=== PATIENT | male | born 1980 | race Caucasian/White ===

== ENCOUNTER 2016-08-18 14:06 | Emergency (ER) | payer SELFPAY ==
--- NOTE | 2016-08-18 15:21 | ER Document Report ---
HPI - HPI Patient complains to provider of: left foot pain Onset: Other - 03/10 week Quality of pain: Achy Severity: Mild Pain Level: 2 Context: Patient presents with left foot pain for the past week and a half. Denies trauma. Reports he's had this pain before but it went away. He reports family history of diabetes and gout. He denies erythema or warmth. Reports pain started on the lateral dorsal area of his foot but gradually rotated around to medial area dorsally. Reports it hurts his foot when he wears boots. Denies other symptoms such as fever vomiting diarrhea. Associated Symptoms: None Exacerbated by: Walking Relieved by: Denies Similar symptoms previously: Yes Recently seen / treated by doctor: No - DERM Skin Color: Normal Past Medical History - General Information source: Patient - Social History Smoking Status: Unknown if Ever Smoked Cigarette use (# per day): No Frequency of alcohol use: None Drug Abuse: None Occupation: unemployed Family History: DM, Other - gout Patient has suicidal ideation: No Patient has homicidal ideation: No - Medical History Medical History: Negative Renal/ Medical History: Denies: Hx Peritoneal Dialysis Surgical Hx: Negative Vertical Provider Document - CONSTITUTIONAL Agree With Documented VS: Yes Exam Limitations: No Limitations General Appearance: WD/WN, Mild Distress - limping when walking - INFECTION CONTROL TRAVEL OUTSIDE OF THE [place] IN LAST 30 DAYS: No - HEENT HEENT: Atraumatic, Normocephalic - NECK Neck: Normal Inspection, Supple - RESPIRATORY Respiratory: Breath Sounds Normal, No Respiratory Distress O2 Sat by Pulse Oximetry: 97 - MUSCULOSKELETAL/EXTREMETIES Musculoskeletal/Extremeties: MAEW, FROM, Tender - left foot dorsal ttp, no erythema, no swelling, no warmth, good pedal pulse, brisk cap refill, no obvious deformity, denies plantar pain - NEURO Level of Consciousness: Awake, Alert, Appropriate Motor/Sensory: No Motor Deficit - DERM Integumentary: Warm, Dry Adult Front & Back Diagram: 1 - c/o ttp Course - Re-evaluation Re-evalutation: 08/18/16 Patient was updated on x-ray instructed on medications. Patient was instructed on the importance of follow-up with curriculum advisory teacher. He verbalized understanding to all instructions. Patient ambulates with a limp - Vital Signs Vital signs: Temp Pulse Resp BP Pulse Ox 98.6 F 102 H 17 156/93 H 97 08/18/16 14:10 08/18/16 14:10 08/18/16 14:10 08/18/16 14:10 08/18/16 14:10 - Diagnostic Test Radiology reviewed: Image reviewed, Reports reviewed - Diagnostic report text EXAM DESCRIPTION: FOOT LEFT COMPLETE COMPLETED DATE/TIME: 2016 3:51 pm REASON FOR STUDY: 34-foot pain COMPARISON: None. NUMBER OF VIEWS: Three views. TECHNIQUE: AP, lateral and oblique radiographic images acquired of the left foot. LIMITATIONS: None. FINDINGS: MINERALIZATION: Normal. BONES: No acute fracture or dislocation. No worrisome bone lesions. JOINTS: Question fibrous coalition or arthropathy at the articulation between the calcaneus and navicular bone, with subcortical cyst formation and bony sclerosis. SOFT TISSUES: No soft tissue swelling. No foreign body. OTHER: No other significant finding. TECHNICAL DOCUMENTATION: JOB ID: [id number] [employer]- All Rights Reserved RAD/ FOOT LEFT COMPLETE IMPRESSION: Subcortical cysts and bony sclerosis at the calcaneonavicular joint, which could be related to arthropathy or fibrous coalition Discharge - Discharge Clinical Impression: Left foot pain, Elevated blood pressure reading Condition: Stable Disposition: HOME, SELF-CARE Instructions: Ibuprofen (General) ([facility]), Oral Narcotic Medication ([facility]) Additional Instructions: *You have been evaluated for left foot pain, arthropathy *Follow up with a curriculum advisory teacher- see list *Rest/Ice/Elevate your foot *Take medication as prescribed- take ibuprofen as prescribed, take norco for acute pain *Return to ED for worsening condition, changes, needs Monitor your blood pressure. Your blood pressure was elevated today. This may be because you were anxious, in pain or because you need medication. It is important to follow up with your primary care provider for full evaluation. Prescriptions: Hydrocodone/Acetaminophen [Wheeler 5-325 Tablet] 1 each PO QID #15 tablet Ibuprofen [Motrin 800 mg Tablet] 800 mg PO TID #30 tablet Forms: Elevated Blood Pressure Referrals: ORLY,HEATHER, DPM [ACTIVE STAFF] - Follow up as needed RADHA GARCIA, BRETTM [ACTIVE STAFF] - Follow up as needed DANNIE REDDING DPM [ACTIVE STAFF] - Follow up as needed
[2016-08-18 16:54] VITALS: BP 148/90
== END 2016-08-18 16:52 | disposition home or self-care (01) ==
LOC: ER 14:06
DX: M79.672 Pain in left foot (principal); R03.0 Elevated blood-pressure reading, without diagnosis of hypertension
CPT/HCPCS: 99283

== ENCOUNTER 2019-01-17 14:58 | Emergency (ER) | payer OTHER ==
[2019-01-17] MEDS ORDERED: NORMAL SALINE 1000 ML 1,000 ML IV ONE ×2 (15:12→17:23)
--- NOTE | 2019-01-17 15:18 | ER Document Report ---
ED General - General Chief Complaint: Pain All Over Stated Complaint: HEAT CRAMPING Time Seen by Provider: 01/17/19 15:09 Mode of Arrival: Ambulatory Information source: Patient Notes: 38-year-old male presents emergency department with complaints of heat cramps. 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 He reports he has been sweating and is starting to cramp up in his hands and his arms. Denies vomiting fever diarrhea, denies dizziness. Reports he had a good breakfast this morning. Also reports he is drank a huge amount of water but he still having the cramps. Denies past medical history of heat exhaustion heatstroke. Denies chest pain shortness of breath. TRAVEL OUTSIDE OF THE [place] 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 Lives with: Family Family History: DM, Other - gout Patient has suicidal ideation: No Patient has homicidal ideation: No Renal/ Medical History: Denies: Hx Peritoneal Dialysis Musculoskeletal Medical History: Reports Hx Arthritis Past Surgical History: Reports: Hx Orthopedic Surgery Review of Systems - Review of Systems Notes: Review HPI for review of systems., All other systems negative Physical Exam - Vital signs Vitals: Temp Pulse Resp BP Pulse Ox 98.8 F 107 H 18 120/92 H 96 01/17/19 15:03 01/17/19 15:03 01/17/19 15:03 01/17/19 15:03 01/17/19 15:03 - Notes Notes: PHYSICAL EXAMINATION: GENERAL: Well-appearing and in no acute distress HEAD: Atraumatic, normocephalic. EYES: Pupils equal round extraocular movements intact, sclera anicteric, conjunctiva are normal. ENT: nares patent, . Moist mucous membranes. NECK: Normal range of motion, supple without lymphadenopathy LUNGS: CTAB and equal. No wheezes rales or rhonchi. HEART: Regular rate and rhythm without murmurs ABDOMEN: Soft, no tenderness. No guarding, no rebound EXTREMITIES: Normal range of motion, NEUROLOGICAL: Cranial nerves grossly intact. Normal sensory/motor exams. PSYCH: Normal mood, normal affect. SKIN: Warm, sweating, normal turgor, no rashes or lesions noted Course - Re-evaluation Re-evalutation: 01/17/19 15:15 38-year-old male presents to the emergency department with body cramps. Reports he has been working outside his sweating. He reports he has been drinking lots of fluids no vomiting no diarrhea and he also ate a large breakfast this morning. Reports cramps come and go. Patient is very sweaty. 01/17/19 18:49 Renal function elevated patient received 2 L of fluid is drinking p.o. fluids. He reports he feels much better. Discussed labs AND patient with Dr. Perez. Patient will be sent home repeat labs in the morning. Patient was instructed on the importance of fluids stay hydrated stay cool. He verbalized understanding to all instructions. - Vital Signs Vital signs: Temp Pulse Resp BP Pulse Ox 97.7 F 89 16 129/82 H 100 01/17/19 18:41 01/17/19 18:41 01/17/19 18:41 01/17/19 18:41 01/17/19 18:41 - Laboratory Result Diagrams: 01/17/19 15:30 01/17/19 15:30 Laboratory results interpreted by me: 01/17/19 01/17/19 01/17/19 15:30 15:30 16:35 WBC 14.2 H RBC 6.02 H RDW 14.3 H Absolute Neuts (auto) 11.0 H Chloride 97 L BUN 28 H Creatinine 1.46 H Est GFR (MDRD) Non-Af 53 L Calcium 10.9 H Total Protein 9.1 H Albumin 5.7 H Urine Protein 30 H Urine Urobilinogen 2.0 H Urine Ascorbic Acid 40 H Discharge - Discharge Clinical Impression: Heat cramps Qualifiers: Encounter type: initial encounter Qualified Code(s): T67.2XXA - Heat cramp, initial encounter Condition: Stable Disposition: HOME, SELF-CARE Instructions: Heat Exhaustion ([facility]), Intravenous (IV) Fluids ([facility]) Additional Instructions: *You have been evaluated for heat cramps *Push your fluids as discussed Gatorade water *Stay well hydrated, cool off often when working in the heat *Follow up with a primary care provider within one week for recheck *Your renal function was elevated. I believe this is because you are really dehydrated. We need to recheck those labs. Follow-up tomorrow for labs at [facility]. You may call me 2 hours after your test at [phone] for your results *Return to ED for worsening condition, changes, needs Forms: Elevated Blood Pressure, Return to Work, Follow-Up Laboratory Testing
[2019-01-17 16:03] LABS: ABSOLUTE LYMPHOCYTES (AUTO) 2.1 10^3/uL (0.5-4.7); BASOPHILS % (AUTO) 0.3 % (0-2); EOSINOPHILS % (AUTO) 0.2 % (0-6); HEMATOCRIT 48.6 % (37.9-51.0); HEMOGLOBIN 16.5 g/dL (13.5-17.0); LYMPHOCYTES % (AUTO) 14.8 % (13-45); MEAN CORPUSCULAR HEMOGLOBIN 27.4 pg (27.0-33.4); MEAN CORPUSCULAR HGB CONC 33.9 g/dL (32.0-36.0); MEAN CORPUSCULAR VOLUME 81 fl (80-97); MONOCYTES % (AUTO) 7.2 % (3-13); PLATELET COUNT 229 10^3/uL (150-450); RED BLOOD COUNT 6.02 10^6/uL (4.35-5.55); RED CELL DISTRIBUTION WIDTH 14.3 % (11.5-14.0); SEGMENTED NEUTROPHILS % (AUTO) 77.5 % (42-78); TOTAL CELLS COUNTED % (AUTO) 100 %; WHITE BLOOD COUNT 14.2 10^3/uL (4.0-10.5)
[2019-01-17 16:21] LABS: ALBUMIN 5.7 g/dL (3.5-5.0); ALKALINE PHOSPHATASE 84 U/L (38-126); ANION GAP 16 (5-19); ASPARTATE AMINO TRANSFERASE 51 U/L (17-59); BILIRUBIN,DIRECT 0.2 mg/dL (0.0-0.4); BILIRUBIN,TOTAL 0.6 mg/dL (0.2-1.3); BLOOD UREA NITROGEN 28 mg/dL (7-20); CALCIUM 10.9 mg/dL (8.4-10.2); CARBON DIOXIDE 26 mmol/L (22-30); CHLORIDE 97 mmol/L (98-107); GLUCOSE 92 mg/dL (75-110); TOTAL PROTEIN 9.1 g/dL (6.3-8.2)
[2019-01-17 17:05] LABS: APPEARANCE,URINE SLIGHTLY-CLOUDY; BILIRUBIN,URINE NEGATIVE (NEGATIVE); CALCIUM OXALATE CRYSTALS,URINE FEW /HPF; COLOR,URINE YELLOW; GLUCOSE, URINE NEGATIVE (NEGATIVE); KETONES,URINE NEGATIVE (NEGATIVE); LEUKOCYTE ESTERASE,URINE NEGATIVE (NEGATIVE); NITRITE,URINE NEGATIVE (NEGATIVE); PROTEIN,URINE 30 mg/dL (NEGATIVE); URINE SPECIFIC GRAVITY 1.028
[2019-01-17 18:43] VITALS: BP 129/82
== END 2019-01-17 18:52 | disposition home or self-care (01) ==
LOC: ER 14:58
DX: T67.2XXA Heat cramp, initial encounter (principal); X58.XXXA Exposure to other specified factors, initial encounter
CPT/HCPCS: 36415; 85025; 80053; 81001; J7030

== ENCOUNTER → 2019-01-18 | Outpatient (CLI) | payer OTHER ==
[2019-01-18 12:47] LABS: BLOOD UREA NITROGEN 19 mg/dL (7-20)
== END ==
LOC: OD 11:33
PROVIDERS: ATTEND Nurse Practitioner Family
DX: N17.9 Acute kidney failure, unspecified (principal); E86.0 Dehydration
CPT/HCPCS: 36415; 82565; 84520

== ENCOUNTER 2020-01-09 06:44 | Day surgery (SDC) | payer MEDICARE, OTHER ==
[~2020-01-09 06:44] MED LIST: KETOROLAC TROMETHAMINE 0.45% 4 DROP/0.4 ML DROPERETTE OS PRN
[2020-01-09] MEDS ORDERED: ONDANSETRON HCL INJ/PF 4 MG/2 ML SDV ONE (07:02)
[2020-01-09] MEDS ORDERED: FENTANYL CITRATE INJ/PF 100 MCG/2 ML AMPUL ONE (07:02)
[2020-01-09] MEDS ORDERED: MIDAZOLAM 2 MG/2 ML INJ ONE ×2 (07:02→08:24)
[2020-01-09] MEDS: CYCLOPENTOLATE 0.2%/PHENYLEPHRINE 1% OPH SOLN 2 ML OS PRN ×3 (07:08→07:28)
[2020-01-09] MEDS: TROPICAMIDE 1% OPH SOLN 15 ML OS PRN ×3 (07:08→07:28)
[2020-01-09] MEDS: BESIFLOXACIN HCL 0.6% OPH SUSP 5 ML BOTTLE OS PRN ×4 (07:08→08:18)
[2020-01-09] MEDS: TETRACAINE HCL 0.5% OPH SOLN 4 ML OS PRN ×4 (07:09→07:51)
[2020-01-09] MEDS: CHONDR SU A NA/HYALUR INTRAOC KIT (SURGICARE) ONE ×2 (08:01)
[2020-01-09] MEDS: LIDOCAINE 1%/PHENYLEPHRINE 1.5% 0.8 ML SYRINGE ONE ×2 (08:01)
[2020-01-09] MEDS: EPINEPHRINE INJ/PF 1 MG/1 ML AMPULE ONE ×2 (08:01)
[2020-01-09] MEDS: DORZOLAMIDE HCL 2%/TIMOLOL MALEAT 0.5% OPH SOLN 10 ML OS PRN ×2 (08:18)
[2020-01-09] MEDS: PREDNISOLONE ACETATE 1% OPH SUSP 5 ML OS PRN ×2 (08:18)
--- NOTE | 2020-01-09 15:45 | Operative Report ---
Operative Report-[facility] Operative Report: DATE OF SURGERY: January 09, 2020 PREOPERATIVE DIAGNOSIS: NUCLEAR CATARACT, LEFT EYE. POSTOPERATIVE DIAGNOSIS: NUCLEAR CATARACT, LEFT EYE. PROCEDURE PERFORMED: PHACOEMULSIFICATION WITH POSTERIOR CHAMBER INTRAOCULAR LENS IMPLANT, LEFT EYE. SURGEON: Tomer Woodruff DO MEDICATIONS AND ANESTHESIA: Versed: IV Versed Tetracaine drops: 1 to 2 drops given as needed COMPLICATION: None INDICATIONS FOR SURGERY: Medical necessity: Best corrected visual acuity worse than 20/40 secondary to cataracts with impairment of ability to carry out needs or desired activities, blurred vision, visual distortion, reduced contrast sensitivity and/or glare with association functional impairment and supporting documentation/testing, and cataracts causing symptomatic impairment of visual functions not corrected with tolerable changes in glasses or contact lenses interfering with activities of daily life. PROCEDURE: Consent: The risks, benefits and alternatives of this procedures was discussed with the patient. The patient read and signed the consent forms, was identified and was seated in the exam chair. IOL: ZXR00 5.0 IOL Diopters: Phacoemulsification with posterior chamber intraocular lens implant: The face was prepped with 5% povidone iodine solution, and a few drops of 5% povidone iodine solution was instilled into the inferior fornix. A non-fenestrated drape was placed over the eye and the lids were parted with the speculum. A paracentesis was made with a 15 degree blade, and 1% lidocaine MPF followed by viscoelastic was injected into the anterior chamber. A 2.4 mm metal micro- keratome was used to create a temporal clear corneal incision. A circular anterior capsulorrhexis was created, followed by hydro-dissection and hydro- delineation. The phacoemulsification hand piece was inserted and the nucleus was removed with the Phaco chop technique. The irrigation-aspiration hand piece was used to remove the residual cortex, and vacuum the posterior capsule. The capsular bag was inflated and viscoelastic and the above-mentioned IOL was injected into the eye with care to insert both leaning and trailing haptics in the capsular bag. The irrigation/aspiration hand piece was reinserted to remove residual viscoelastic from the capsular bag and anterior chamber. The corneal incision was hydrated, and anterior chamber was inflated with sterile BSS via the paracentesis site, and found to be watertight. Postop medication:1 drop of prednisolone into operative by followed by 1 drop of Cosopt into operative eye followed by 1 drop of Besivance intraoperative by Other:
== END 2020-01-09 08:50 | disposition home or self-care (01) ==
LOC: SC 06:44
PROVIDERS: ATTEND Ophthalmology
DX: H25.12 Age-related nuclear cataract, left eye (principal)
CPT/HCPCS: 142; J0171; J2250; J2405; J3010; J3490; V2788

== ENCOUNTER 2020-01-23 07:52 | Day surgery (SDC) | payer MEDICARE, OTHER ==
[~2020-01-23 07:52] MED LIST changes: +KETOROLAC TROMETHAMINE 0.45% 4 DROP/0.4 ML DROPERETTE OD PRN; -KETOROLAC TROMETHAMINE 0.45% 4 DROP/0.4 ML DROPERETTE OS PRN
[2020-01-23] MEDS: TETRACAINE HCL 0.5% OPH SOLN 4 ML OD PRN ×3 (08:34→09:04)
[2020-01-23] MEDS: CYCLOPENTOLATE 0.2%/PHENYLEPHRINE 1% OPH SOLN 2 ML OD PRN ×3 (08:34→08:49)
[2020-01-23] MEDS: BESIFLOXACIN HCL 0.6% OPH SUSP 5 ML BOTTLE OD PRN ×4 (08:35→09:28)
[2020-01-23] MEDS: TROPICAMIDE 1% OPH SOLN 15 ML OD PRN ×3 (08:35→08:49)
[2020-01-23] MEDS ORDERED: MIDAZOLAM 2 MG/2 ML INJ ONE (09:12)
[2020-01-23] MEDS ORDERED: FENTANYL CITRATE INJ/PF 100 MCG/2 ML AMPUL ONE (09:12)
[2020-01-23] MEDS: EPINEPHRINE INJ/PF 1 MG/1 ML AMPULE ONE ×2 (09:14→09:17)
[2020-01-23] MEDS: LIDOCAINE 1%/PHENYLEPHRINE 1.5% 0.8 ML SYRINGE ONE ×2 (09:14→09:17)
[2020-01-23] MEDS: CHONDR SU A NA/HYALUR INTRAOC KIT (SURGICARE) ONE ×2 (09:15→09:17)
[2020-01-23] MEDS: DORZOLAMIDE HCL 2%/TIMOLOL MALEAT 0.5% OPH SOLN 10 ML OD PRN ×2 (09:28)
[2020-01-23] MEDS: PREDNISOLONE ACETATE 1% OPH SUSP 5 ML OD PRN ×2 (09:28)
--- NOTE | 2020-01-23 10:42 | Operative Report ---
Operative Report-[facility] Operative Report: DATE OF SURGERY: January 23, 2020 PREOPERATIVE DIAGNOSIS: NUCLEAR CATARACT, RIGHT EYE. POSTOPERATIVE DIAGNOSIS: NUCLEAR CATARACT, RIGHT EYE. PROCEDURE PERFORMED: PHACOEMULSIFICATION WITH POSTERIOR CHAMBER INTRAOCULAR LENS IMPLANT, RIGHT EYE. SURGEON: Tomer Woodruff DO MEDICATIONS AND ANESTHESIA: Versed: IV Versed Tetracaine drops: 1 to 2 drops given as needed COMPLICATION: None INDICATIONS FOR SURGERY: Medical necessity: Best corrected visual acuity worse than 20/40 secondary to cataracts with impairment of ability to carry out needs or desired activities, blurred vision, visual distortion, reduced contrast sensitivity and/or glare with association functional impairment and supporting documentation/testing, and cataracts causing symptomatic impairment of visual functions not corrected with tolerable changes in glasses or contact lenses interfering with activities of daily life. PROCEDURE: Consent: The risks, benefits and alternatives of this procedures was discussed with the patient. The patient read and signed the consent forms, was identified and was seated in the exam chair. IOL: ZXR00 8.0 IOL Diopters: Phacoemulsification with posterior chamber intraocular lens implant: The face was prepped with 5% povidone iodine solution, and a few drops of 5% povidone iodine solution was instilled into the inferior fornix. A non-fenestrated drape was placed over the eye and the lids were parted with the speculum. A paracentesis was made with a 15 degree blade, and 1% lidocaine MPF followed by viscoelastic was injected into the anterior chamber. A 2.4 mm metal micro- keratome was used to create a temporal clear corneal incision. A circular anterior capsulorrhexis was created, followed by hydro-dissection and hydro- delineation. The phacoemulsification hand piece was inserted and the nucleus was removed with the Phaco chop technique. The irrigation-aspiration hand piece was used to remove the residual cortex, and vacuum the posterior capsule. The capsular bag was inflated and viscoelastic and the above-mentioned IOL was injected into the eye with care to insert both leaning and trailing haptics in the capsular bag. The irrigation/aspiration hand piece was reinserted to remove residual viscoelastic from the capsular bag and anterior chamber. The corneal incision was hydrated, and anterior chamber was inflated with sterile BSS via the paracentesis site, and found to be watertight. Postop medication: 1 drop of prednisolone into operative by followed by 1 drop of Cosopt into operative eye followed by 1 drop of Besivance intraoperative by other:
== END 2020-01-23 10:04 | disposition home or self-care (01) ==
LOC: SC 07:52
PROVIDERS: ATTEND Ophthalmology
DX: H25.11 Age-related nuclear cataract, right eye (principal); Z98.42 Cataract extraction status, left eye; Z79.899 Other long term (current) drug therapy; Z83.3 Family history of diabetes mellitus; Z80.9 Family history of malignant neoplasm, unspecified
CPT/HCPCS: 66984; 00142; V2788; J2250; J3490 ×3; J0171; J3010; 142